=== PATIENT | female | born 1940 | race Caucasian/White ===

== ENCOUNTER 2017-01-03 19:56 | Emergency (ER) | payer MEDICAID, OTHER ==
[~2017-01-03] VITALS: Ht 165.1 cm; Wt 100.5 kg
[2017-01-03 19:59] VITALS: Ht 165.1 cm; Wt 100.5 kg
[2017-01-03] MEDS ORDERED: ALBUTEROL 0.083% (NEB) 2.5 MG/3 ML AMP HHN STA (23:06)
[2017-01-03] MEDS ORDERED: IPRATROPIUM (NEB) 0.5 MG/2.5 ML AMP HHN ONE (23:30)
--- NOTE | 2017-01-04 00:23 | RADRPT ---
PROCEDURE: XR Chest. CLINICAL INDICATION: Cough TECHNIQUE: Single AP portable chest. COMPARISON: No prior Chest x-ray FINDINGS: The cardiomediastinal silhouette is within normal limits of size. Elevation of the right the hemidia phragm. Atherosclerotic calcification of the aorta. The lungs are clear without pleural effusion or focal consolidation. No pneumothorax. Dextroscoliosis of the mid thoracic spine. IMPRESSION: 1. No evidence for active cardiopulmonary disease. RPTAT:AAJJ Physician Arpita Date Time Electronically viewed and signed by Physician Arpita on 01/04/2017 00:22 DENNIS/
[2017-01-04] MEDS ORDERED: ALBU8.5H3 INH (00:35)
[2017-01-04] MEDS ORDERED: LEVO750T25 PO (00:35)
--- NOTE | 2017-01-04 01:04 | ERD ---
ER Documentation Chief Complaint Date/Time DATE: 01/04/17 TIME: 00:57 Chief Complaint cough , sore throat x 2 weeks HPI This is a 76-year-old female presents to the ER with a cough for the last 15 days. Cough is severe constant and dry. Patient states that she has had wheezing, however does not have a history of asthma. She has not had any fevers or chills. She denies any sore throat or ear pain. She denies any chest pain or shortness of breath. Patient has a past medical history of hypertension and is compliant with her medications. ROS 12 point review of systems was done, all negative except per HPI. Medications Home Meds Active Scripts Albuterol Sulfate* (Proair HFA*) 8.5 Gm Hfa.aer.ad, 2 PUFF INH Q4, #1 INHALER Prov:YOU VALDOVINOS 01/04/17 Levofloxacin* (Levaquin*) 750 Mg Tablet, 750 MG PO DAILY for 5 Days, TAB Prov:YOU VALDOVINOS 01/04/17 Allergies Allergies: Coded Allergies: Penicillins (Verified Allergy, Unknown, 01/03/17) PMhx/Soc History of Surgery: No Anesthesia Reaction: No Hx Neurological Disorder: No Hx Respiratory Disorders: No Hx Cardiac Disorders: No Hx Psychiatric Problems: No Hx Miscellaneous Medical Probl: No Hx Substance Use: No Hx Tobacco Use: No Physical Exam Vitals Vital Signs Date Time Temp Pulse Resp B/P Pulse Ox O2 Delivery O2 Flow Rate FiO2 01/04/17 00:17 77 20 99 21 01/03/17 19:59 99.2 94 20 177/96 97 Physical Exam GENERAL: The patient is well-developed, well-nourished, in no acute distress. NECK: Cervical spine is non tender with no step off. Supple, no nuchal rigidity HEENT: Atraumatic. Pupils equal, round and reactive to light. Extraocular muscles are grossly intact. Conjunctivae pink, no discharge. Bilateral tympanic membranes are clear with no evidence of erythema, effusion or dulling of the light reflex. Tonsilar erythema with no exudates or uvular deviation. Clear rhinorrhea. RESPIRATORY: expiratory wheezing in all lung mccurdy. No rales rhonchi or crackles. HEART: Regular rate and rhythm. No murmurs, clicks, rubs or gallops. EXTREMITIES: No clubbing or cyanosis. Full range of motion. Grossly neurovascularly intact. NEUROLOGIC: Alert and oriented. Cranial nerves II through XII are intact. SKIN: There is no rash. The skin is warm and dry. Results 24 hrs Current Medications Medications (Trade) Dose Ordered Sig/Kat Route PRN Reason Start Time Stop Time Status Last Admin Dose Admin Albuterol (Proventil 0.083% (Neb)) 5 mg ONCE STAT N 01/03/17 23:06 01/03/17 23:07 DC 01/04/17 00:17 Ipratropium [place] (Atrovent 0.02% (Neb)) 0.5 mg ONCE ONCE N 01/03/17 23:30 01/03/17 23:31 DC 01/04/17 00:16 [place] [id number] Radiology Main Line: [phone] DIAGNOSTIC IMAGING REPORT Patient: NATIVIDAD ROMERO : 1940 Age: 76 Sex: F MR #: [id number] DOS: 01/03/17 0000 Ordering MD: YOU VALDOVINOS. PA-C Location: [facility] Room/Bed: PROCEDURE: XR Chest. CLINICAL INDICATION: Cough TECHNIQUE: Single AP portable chest. COMPARISON: No prior Chest x-ray FINDINGS: The cardiomediastinal silhouette is within normal limits of size. Elevation of the right the hemidiaphragm. Atherosclerotic calcification of the aorta. The lungs are clear without pleural effusion or focal consolidation. No pneumothorax. Dextroscoliosis of the mid thoracic spine. IMPRESSION: 1. No evidence for active cardiopulmonary disease. RPTAT:AAJJ Physician Arpita Date Time Electronically viewed and signed by Physician Arpita on 01/04/2017 00:22 DENNIS/ CC: YOU VALDOVINOS Procedures/MDM Differential diagnosis includes but is not limited to; Viral URI, allergic rhinitis, bronchitis, pertussis,pneumonia. Patient was treated for possible bacterial bronchitis with wheezing. Patient will be sent home with Levaquin and albuterol. Patient was given a nebulizing treatment in the ER with albuterol and ipratropium, upon reexamination her wheezing was improved and she felt significantly better. Clinical suspicion for pneumonia is low as patient appears well, is not hypoxic or in any respiratory distress. Additionally, patients physical examination is benign. Plan was discussed with patient they understand and agree. Patient needs to follow up with PCP in 1-2 days or return to ER sooner if symptoms worsen. Departure Diagnosis: Primary Impression: Bronchitis Condition: Stable Patient Instructions: Bronchitis With Wheezing (Adult) Additional Instructions: Llame al doctor MAANA y oj allie REY PARA DENTRO DE 1-2 [place].Dgale a la secretaria que nosotros le instruimos hacer esta rey.Avise o llame si colmenares condicin se empeora antes de la rey. Regresa aqui si peor o no mejor. YOU VALDOVINOS Jan 04, 2017 01:04
[2017-01-04 01:15] VITALS: BP 179/74; PULSE 88; RESP 20; TEMP 98.2
== END 2017-01-04 00:40 | disposition home or self-care (01) ==
LOC: FTE 19:56
DX: J20.9 Acute bronchitis, unspecified (principal)
CPT/HCPCS: 71010; 94664; Z7502; Z7610